=== PATIENT | female | born 1940 | race Caucasian/White ===

== ENCOUNTER 2024-07-06 13:30 | Inpatient (IN) | payer MEDICARE, BC ==
[~2024-07-06] VITALS: Ht 165.1 cm; Wt 50.3 kg
[~2024-07-06 13:30] MED LIST: AMIO200T13 PO; CARB25TA77 PO; FURO20TA4 PO; ISOS1TAB37 PO; MAGN241.4 PO; MEMA1TAB5 PO; MET50T PO; WARF-111 PO
[2024-07-06] MEDS: HYDROmorphone HCL 2 MG/ML VL/or syr IM ONE (16:02)
[2024-07-06 16:54] LABS: Basophils # (auto) 0 10 ^3/uL (0-0.2); Basophils % (auto) 0.7 % (0.0-2.0); Eosinophils # (auto) 0.1 10 ^3/uL (0-0.8); Eosinophils % (auto) 1.5 % (0.0-7.0); Hematocrit 30.8 % (36.0-46.0); Hemoglobin 10.1 g/dL (12.2-16.2); Lymphocytes # (auto) 0.8 10 ^3/uL (0.4-5.4); Lymphocytes % (auto) 19.4 % (10.0-50.0); Mean Corpuscular Hemoglobin 30.1 pg (28.0-32.0); Mean Corpuscular Hgb Conc. 32.8 g/dL (32.0-36.0); Mean Corpuscular Volume 91.9 fL (80.0-100.0); Monocytes # (auto) 0.3 10 ^3/uL (0-1.3); Monocytes % (auto) 7.2 % (0.0-12.0); Neutrophils # (auto) 2.8 10 ^3/uL (1.6-8.6); Neutrophils % (auto) 71.2 % (37.0-80.0); Platelet Count (auto) 297 10^3/uL (140-450); Red Blood Cells 3.35 10^6/uL (4.0-5.20); Red Cell Distribution Width 15.9 % (11.8-14.3); White Blood Cell 3.9 10^3/uL (4.4-10.8)
[2024-07-06 17:11] LABS: Albumin 3.9 g/dL (3.2-4.8); Alkaline Phosphatase 106 U/L (46-116); Anion Gap 6 (5-15); Aspartate Aminotransferase 17 U/L (13-40); BUN/Creatinine Ratio 27.3 (10.0-20.0); Bilirubin, Total 0.6 mg/dL (0.2-1.0); Blood Urea Nitrogen 30 mg/dL (9-23); Calcium 9.3 mg/dL (8.7-10.4); Carbon Dioxide 28 mmol/L (20-30); Chloride 100 mmol/L (98-107); Glucose 90 mg/dL (74-106); Potassium 4.9 mmol/L (3.5-5.1); Sodium 134 mmol/L (136-145)
[2024-07-06 17:12] LABS: Total Protein 6.5 g/dL (5.7-8.2)
[2024-07-06 17:15] LABS: Alanine Aminotransferase < 9 U/L (7-40)
[2024-07-06] MEDS: FUROSEMIDE 40 MG/4 ML VIAL IV ONE (17:45)
[2024-07-06 19:15] VITALS: RESP 15; O2SAT 93
[2024-07-06] MEDS: SODIUM CHLORIDE 0.9% 1,000 ML IV ONE (20:23)
[2024-07-06] MEDS ORDERED: DOCUSATE SOD 100 MG CAP PO PRN (21:00)
[2024-07-06] MEDS ORDERED: ONDANSETRON HCL 4 MG/2 ML VIAL IV PRN (21:00)
[2024-07-06] MEDS ORDERED: ACETAMINOPHEN 325 MG TAB PO PRN (21:00)
[2024-07-06] MEDS: CARVEDILOL 3.125 MG TAB PO SCH (22:07)
[2024-07-06] MEDS: SODIUM CHLOR 0.9% PF (SALINE LOCK) 10ML VIAL/SYR IV SCH (22:07)
[2024-07-06 22:42] LABS: Urine Bacteria None Seen /hpf (None Seen)
[2024-07-06] MEDS ORDERED: MORPHINE SULFATE INJ 2 MG/ml SYRG IV PRN (22:45)
[2024-07-06] MEDS ORDERED: NITROGLYCERIN 0.4 MG SL TAB SL PRN (22:45)
[2024-07-06 23:08] LABS: Urine Blood Negative /uL (Negative); Urine Clarity Clear (Clear); Urine Color Light-Yellow (Yellow); Urine Hyaline Cast FEW /lpf (0 - 2); Urine Protein, UAD Negative (Negative); Urine Specific Gravity 1.012 (1.001-1.035); Urine Urobilinogen Normal (Negative); Urine WBC 3 /hpf (0 - 5); Urine pH 6.5 (5.0-9.0)
[2024-07-07 05:16] LABS: Basophils # (auto) 0 10 ^3/uL (0-0.2); Basophils % (auto) 0.7 % (0.0-2.0); Eosinophils # (auto) 0 10 ^3/uL (0-0.8); Eosinophils % (auto) 0.7 % (0.0-7.0); Hematocrit 31.2 % (36.0-46.0); Hemoglobin 10.4 g/dL (12.2-16.2); Lymphocytes # (auto) 0.6 10 ^3/uL (0.4-5.4); Lymphocytes % (auto) 12.7 % (10.0-50.0); Mean Corpuscular Hemoglobin 30.6 pg (28.0-32.0); Mean Corpuscular Hgb Conc. 33.2 g/dL (32.0-36.0); Mean Corpuscular Volume 92.2 fL (80.0-100.0); Monocytes # (auto) 0.3 10 ^3/uL (0-1.3); Monocytes % (auto) 6.3 % (0.0-12.0); Neutrophils # (auto) 3.6 10 ^3/uL (1.6-8.6); Neutrophils % (auto) 79.6 % (37.0-80.0); Nucleated Red Blood Cells % 0.1 %; Platelet Count (auto) 275 10^3/uL (140-450); Red Blood Cells 3.38 10^6/uL (4.0-5.20); Red Cell Distribution Width 16.3 % (11.8-14.3); White Blood Cell 4.5 10^3/uL (4.4-10.8)
[2024-07-07 05:21] LABS: Albumin 3.9 g/dL (3.2-4.8); Alkaline Phosphatase 104 U/L (46-116); Anion Gap 5 (5-15); Aspartate Aminotransferase 18 U/L (13-40); BUN/Creatinine Ratio 22.7 (10.0-20.0); Blood Urea Nitrogen 22 mg/dL (9-23); Calcium 9.4 mg/dL (8.7-10.4); Carbon Dioxide 26 mmol/L (20-30); Chloride 104 mmol/L (98-107); Glucose 86 mg/dL (74-106); Potassium 4.2 mmol/L (3.5-5.1); Sodium 135 mmol/L (136-145)
[2024-07-07 05:22] LABS: Bilirubin, Total 0.6 mg/dL (0.2-1.0)
[2024-07-07 05:34] LABS: Alanine Aminotransferase < 9 U/L (7-40)
[2024-07-07 08:20] VITALS: PULSE 79; RESP 18; O2SAT 94
[2024-07-07] MEDS: FUROSEMIDE 20 MG/2 ML VIAL IV SCH (10:26)
[2024-07-07] MEDS: FAMOTIDINE (10MG/ML) 2ML VL IV SCH (10:27)
[2024-07-07] MEDS: MEMANTINE HCL 5 MG TAB PO SCH (10:28)
[2024-07-07] MEDS: ASPirin 81 mg TAB PO SCH (10:28)
[2024-07-07 16:30] VITALS: PULSE 79; RESP 16
[2024-07-07 17:05] VITALS: BP 149/72; PULSE 79; TEMP 97; O2SAT 92
[2024-07-07 20:00] VITALS: PULSE 79
[2024-07-07] MEDS: HYDROcodone-ACET 5/325MG TAB PO PRN (20:13)
[2024-07-07 21:00] VITALS: BP 135/69; PULSE 79; RESP 18; TEMP 97.8; O2SAT 95
[2024-07-08] VITALS (8 sets, daily range): BP systolic 101–148; BP diastolic 56–72; PULSE 70–80; RESP 14–18; TEMP 97.3–98.3; O2SAT 92–97
[2024-07-09 01:00] VITALS: BP_SYST 115; BP_SYST 120; BP_DIAS 49; BP_DIAS 60; PULSE 79; PULSE 80; RESP 15; TEMP 97.6; O2SAT 93; O2SAT 94
[2024-07-09 05:00] VITALS: BP 113/67; PULSE 78; RESP 12; TEMP 97.9; O2SAT 93
[2024-07-09 08:00] VITALS: PULSE 79; PULSE 93; RESP 16
[2024-07-09 09:00] VITALS: BP 122/68; PULSE 79; RESP 17; TEMP 97.8; O2SAT 96
[2024-07-09 16:12] VITALS: BP 129/79; PULSE 79; RESP 18; TEMP 97.8; O2SAT 94
[2024-07-09 16:37] VITALS: BP 125/70; PULSE 76; RESP 20; TEMP 97.6; O2SAT 93
== END 2024-07-09 22:10 | disposition home or self-care (01) | DRG 291 ==
LOC: EDBD 13:30 → ER 13:30 → EDUNIT# 13:30 → TELE 22:36 → TELE-WESTW 07-07 16:25
PROVIDERS: ADMIT Nurse Practitioner Family; ATTEND Internal Medicine
DX: I50.33 Acute on chronic diastolic (congestive) heart failure (principal); N17.0 Acute kidney failure with tubular necrosis; R62.7 Adult failure to thrive; D64.9 Anemia, unspecified; F03.90 Unspecified dementia, unspecified severity, without behavioral disturbance, psychotic disturbance, mood disturbance, and anxiety; I48.91 Unspecified atrial fibrillation; R29.6 Repeated falls; Z88.0 Allergy status to penicillin; Z96.641 Presence of right artificial hip joint; Z79.82 Long term (current) use of aspirin; Z74.01 Bed confinement status; Z79.899 Other long term (current) drug therapy
CPT/HCPCS: 36415; 71045; 72192; 80053; 81001; 83880; 84484; 85025; 93306; G0378; J3490